=== PATIENT | female | born 1985 | race Caucasian/White ===

== ENCOUNTER → 2019-10-02 13:24 | Outpatient (CLI) | payer MEDICAID ==
[2014-03-09 12:46] VITALS: BMI 37.8
[~2019-10-02 13:24] MED LIST: DIABETA5 MG PO; IBUPROFEN600 MG PO; PERCOCET 5-3251 TAB PO; PRENATAL COMPLE1 TAB PO; SYNTHROID125 MCG PO
== END | disposition home or self-care (01) ==
LOC: D.US 12:45
PROVIDERS: ATTEND Obstetrics & Gynecology Gynecology
DX: O09.90 Supervision of high risk pregnancy, unspecified, unspecified trimester (principal); Z3A.00 Weeks of gestation of pregnancy not specified

== ENCOUNTER 2019-10-27 05:26 | Inpatient (IN) | payer BC ==
[~2019-10-27] VITALS: Ht 167.6 cm; Wt 106.6 kg
[2019-10-27] MEDS ORDERED: TYLENOL W/CODEI1 TAB PO (06:19)
[2019-10-27] MEDS ORDERED: NORMODYNE / TR100 MG PO (06:20)
[2019-10-27] MEDS ORDERED: GLYBURIDE5 M1 PO (06:20)
[2019-10-27 06:21] VITALS: BP 117/65; BMI 38.0
--- NOTE | 2019-10-28 01:01 | NUR ---
RN TO PT BEDSIDE FOR ROUNDING. PT SLEEPING AT THIS TIME. NO NEEDS AT THIS TIME. BED IN LOWEST POSITION, CALL LIGHT WITHIN REACH, SIDE RAILS UPX2.
--- NOTE | 2019-10-28 07:13 | NUR ---
PER REPORT THIS AM, FBG IS 81, PT SELF-ADMINISTERS INSULIN PER MD ORDERS, REVIEWED TECHNIQUE FOR DRAWING INSULIN AND NEED FOR GLUCOSE CHECKS AND KEEPING A DAILY LOG. PT STATES UNDERSTANDING, AM ASSESSMENT COMPLETED, NAD NOTED. WILL MONITOR.
[2019-10-28 07:18] VITALS: BP 128/77
--- NOTE | 2019-10-28 08:30 | NUR ---
ROUNDS COMPLETED, NAD NOTED. WILL MONITOR.
--- NOTE | 2019-10-28 09:32 | NUR ---
ROUNDS COMPLETED, NAD NOTED WILL MONITOR. DISCUSSED PLAN OF CARE FOR TODAY INCLUDING DISCHARGE HOME. PT STATES UNDERSTANDING.
[2019-10-28 09:33] VITALS: Ht 167.6 cm; Wt 106.6 kg
[2019-10-28] MEDS ORDERED: HUMULIN R100 UNIT/1 SQ (09:54)
[2019-10-28] MEDS ORDERED: HUMULIN N100 U/ML SC ×3 (09:56→09:59)
--- NOTE | 2019-10-28 10:37 | NUR ---
discharge instructions reviewed with pt, handouts provided for review at home, questions answered, original rx given to pt, saline lock discontinued, catheter tip intact, pressure dressing applied and secured with clear tape. pt states "i have to go my is waiting on me". verbalizes understanding of all instructions given today. ambulatory from unit with personal belongings discharged in stable condition.
== END 2019-10-28 10:37 | disposition home or self-care (01) | DRG 833 ==
LOC: D.LDO 05:26 → D.LD 05:58
PROVIDERS: ADMIT Obstetrics & Gynecology; ATTEND Obstetrics & Gynecology
DX: O24.419 Gestational diabetes mellitus in pregnancy, unspecified control (principal); Z3A.24 24 weeks gestation of pregnancy; O13.4 Gestational [pregnancy-induced] hypertension without significant proteinuria, complicating childbirth; O99.282 Endocrine, nutritional and metabolic diseases complicating pregnancy, second trimester

== ENCOUNTER 2019-12-07 05:16 | Outpatient (CLI) | payer MEDICAID ==
[2019-10-28 09:33] VITALS: BMI 38.0
[~2019-12-07 05:16] MED LIST changes: +GLYBURIDE5 M1 PO; +HUMULIN N100 U/ML SC; +HUMULIN R100 UNIT/1 SQ; +NORMODYNE / TR100 MG PO; +TYLENOL W/CODEI1 TAB PO
== END 2019-12-07 06:30 | disposition home or self-care (01) ==
LOC: D.LDO 05:16
PROVIDERS: ATTEND Obstetrics & Gynecology
DX: O24.913 Unspecified diabetes mellitus in pregnancy, third trimester (principal); Z3A.29 29 weeks gestation of pregnancy

== ENCOUNTER → 2019-12-11 09:03 | Outpatient (CLI) | payer MEDICAID ==
[2019-10-28 09:33] VITALS: BMI 38.0
== END | disposition home or self-care (01) ==
LOC: D.LDO 09:03
PROVIDERS: ATTEND Obstetrics & Gynecology
DX: O24.913 Unspecified diabetes mellitus in pregnancy, third trimester (principal); Z3A.30 30 weeks gestation of pregnancy

== ENCOUNTER 2019-12-14 04:56 | Outpatient (CLI) | payer MEDICAID ==
[2019-10-28 09:33] VITALS: BMI 38.0
== END 2019-12-14 05:35 | disposition home or self-care (01) ==
LOC: D.LDO 04:56
PROVIDERS: ATTEND Obstetrics & Gynecology
DX: O24.913 Unspecified diabetes mellitus in pregnancy, third trimester (principal); Z3A.30 30 weeks gestation of pregnancy

== ENCOUNTER → 2019-12-18 19:40 | Outpatient (CLI) | payer MEDICAID ==
[2019-10-28 09:33] VITALS: BMI 38.0
== END | disposition home or self-care (01) ==
LOC: D.LDO 19:40
PROVIDERS: ATTEND Student in an Organized Health Care Education/Training Program
DX: O24.419 Gestational diabetes mellitus in pregnancy, unspecified control (principal); Z3A.31 31 weeks gestation of pregnancy

== ENCOUNTER 2019-12-21 05:51 | Outpatient (CLI) | payer MEDICAID ==
[2019-10-28 09:33] VITALS: BMI 38.0
== END 2019-12-21 07:05 | disposition home or self-care (01) ==
LOC: D.LDO 05:51
PROVIDERS: ATTEND Obstetrics & Gynecology
DX: O24.419 Gestational diabetes mellitus in pregnancy, unspecified control (principal); Z3A.31 31 weeks gestation of pregnancy

== ENCOUNTER 2019-12-25 20:08 | Outpatient (CLI) | payer MEDICAID ==
[2019-10-28 09:33] VITALS: BMI 38.0
== END 2019-12-25 21:08 | disposition home or self-care (01) ==
LOC: D.LDO 20:08
PROVIDERS: ATTEND Obstetrics & Gynecology
DX: O24.913 Unspecified diabetes mellitus in pregnancy, third trimester (principal); Z3A.32 32 weeks gestation of pregnancy

== ENCOUNTER 2019-12-29 06:17 | Outpatient (CLI) | payer MEDICAID ==
[2019-10-28 09:33] VITALS: BMI 38.0
== END 2019-12-29 08:30 | disposition home or self-care (01) ==
LOC: D.LDO 06:17
PROVIDERS: ATTEND Obstetrics & Gynecology
DX: O24.419 Gestational diabetes mellitus in pregnancy, unspecified control (principal); Z3A.32 32 weeks gestation of pregnancy; O16.3 Unspecified maternal hypertension, third trimester

== ENCOUNTER 2020-01-01 16:26 | Outpatient (CLI) | payer MEDICAID ==
[2019-10-28 09:33] VITALS: BMI 38.0
== END 2020-01-01 17:01 | disposition home or self-care (01) ==
LOC: D.LDO 16:26
PROVIDERS: ATTEND Obstetrics & Gynecology
DX: O24.913 Unspecified diabetes mellitus in pregnancy, third trimester (principal); Z3A.33 33 weeks gestation of pregnancy

== ENCOUNTER 2020-01-04 06:08 | Outpatient (CLI) | payer MEDICAID ==
[2019-10-28 09:33] VITALS: BMI 38.0
== END 2020-01-04 06:30 ==
LOC: D.LDO 06:08
PROVIDERS: ATTEND Obstetrics & Gynecology
DX: O24.913 Unspecified diabetes mellitus in pregnancy, third trimester (principal); Z3A.33 33 weeks gestation of pregnancy

== ENCOUNTER 2020-01-08 17:15 | Outpatient (CLI) | payer MEDICAID ==
[2019-10-28 09:33] VITALS: BMI 38.0
== END 2020-01-08 19:45 | disposition home or self-care (01) ==
LOC: D.LDO 17:15
PROVIDERS: ATTEND Obstetrics & Gynecology
DX: O24.913 Unspecified diabetes mellitus in pregnancy, third trimester (principal); Z3A.34 34 weeks gestation of pregnancy

== ENCOUNTER 2020-01-11 09:40 | Outpatient (CLI) | payer MEDICAID ==
[2019-10-28 09:33] VITALS: BMI 38.0
== END 2020-01-11 09:57 | disposition home or self-care (01) ==
LOC: D.LDO 09:40
PROVIDERS: ATTEND Obstetrics & Gynecology
DX: O24.913 Unspecified diabetes mellitus in pregnancy, third trimester (principal); O10.913 Unspecified pre-existing hypertension complicating pregnancy, third trimester; Z3A.34 34 weeks gestation of pregnancy

== ENCOUNTER 2020-01-15 19:40 | Outpatient (CLI) | payer MEDICAID ==
[2019-10-28 09:33] VITALS: BMI 38.0
== END 2020-01-15 21:27 | disposition home or self-care (01) ==
LOC: D.LDO 19:40
PROVIDERS: ATTEND Pediatrics
DX: O24.913 Unspecified diabetes mellitus in pregnancy, third trimester (principal); Z3A.35 35 weeks gestation of pregnancy

== ENCOUNTER → 2020-01-18 05:24 | Outpatient (CLI) | payer MEDICAID ==
[2019-10-28 09:33] VITALS: BMI 38.0
== END | disposition home or self-care (01) ==
LOC: D.LDO 05:24
PROVIDERS: ATTEND Obstetrics & Gynecology
DX: O24.913 Unspecified diabetes mellitus in pregnancy, third trimester (principal); O16.3 Unspecified maternal hypertension, third trimester; Z3A.35 35 weeks gestation of pregnancy

== ENCOUNTER 2020-01-22 06:55 | Outpatient (CLI) | payer MEDICAID ==
[2019-10-28 09:33] VITALS: BMI 38.0
== END 2020-01-22 07:45 | disposition home or self-care (01) ==
LOC: D.LDO 06:55
PROVIDERS: ATTEND Obstetrics & Gynecology
DX: O24.419 Gestational diabetes mellitus in pregnancy, unspecified control (principal); Z3A.36 36 weeks gestation of pregnancy

== ENCOUNTER 2020-01-25 07:25 | Outpatient (CLI) | payer MEDICAID ==
[2019-10-28 09:33] VITALS: BMI 38.0
== END 2020-01-25 08:49 | disposition home or self-care (01) ==
LOC: D.LDO 07:25
PROVIDERS: ATTEND Obstetrics & Gynecology
DX: O24.419 Gestational diabetes mellitus in pregnancy, unspecified control (principal); Z3A.36 36 weeks gestation of pregnancy

== ENCOUNTER 2020-01-29 15:49 | Outpatient (CLI) | payer MEDICAID ==
[2019-10-28 09:33] VITALS: BMI 38.0
== END 2020-01-29 17:14 | disposition home or self-care (01) ==
LOC: D.LDO 15:49
PROVIDERS: ATTEND Obstetrics & Gynecology
DX: O24.913 Unspecified diabetes mellitus in pregnancy, third trimester (principal); O16.3 Unspecified maternal hypertension, third trimester; Z3A.37 37 weeks gestation of pregnancy

== ENCOUNTER 2020-01-30 05:26 | Inpatient (IN) | payer MEDICAID ==
[~2020-01-30] VITALS: Ht 167.6 cm; Wt 117.9 kg
[2020-01-30 05:43] VITALS: BP 149/84; Ht 167.6 cm; Wt 117.9 kg
[2020-01-30 06:43] LABS: HEMATOCRIT 31.3 % (36.0-48.0); HEMOGLOBIN 10.5 g/dL (12-16); MCH 29.7 pg (26.0-34.0); MCHC 33.5 g/dL (31.0-37.0); MCV 88.7 fL (80.0-100.0); MEAN PLATELET VOLUME 11.4 fL (7.4-10.4); RBC 3.53 10x6/uL (4.00-5.40); RDW 15.1 % (11.5-14.5); WBC 9.2 10x3/uL (4.8-10.8)
[2020-01-30 06:59] LABS: UDS - AMPHET NEGATIVE QUAL (NEGATIVE); UDS - BARB NEGATIVE QUAL (NEGATIVE); UDS - BENZO NEGATIVE QUAL (NEGATIVE); UDS - COCAINE NEGATIVE QUAL (NEGATIVE); UDS - OPIATE NEGATIVE QUAL (NEGATIVE); UDS - PCP NEGATIVE QUAL (NEGATIVE); UDS - THC NEGATIVE QUAL (NEGATIVE)
[2020-01-30 08:31] LABS: CALC OSMOLALITY 272 mosm/kg (275-300); CALCIUM 9.3 mg/dL (8.5-10.1); CARBON DIOXIDE 21.7 mmol/L (21.0-32.0); CHLORIDE - SERUM 105 mmol/L (98-107); CREATININE - SERUM 0.7 mg/dL (0.6-1.3); POTASSIUM - SERUM 3.9 mmol/L (3.5-5.1); SODIUM 138 mmol/L (136-145); UREA NITROGEN 9 mg/dL (7-18); eGFR NON AFRICAN AMERICAN > 90 mL/min (90-120)
[2020-01-30 08:33] LABS: GLUCOSE 69 mg/dL (74-106)
[2020-01-30 08:37] LABS: ALBUMIN 2.4 g/dL (3.4-5.0); ALKALINE PHOSPHATASE 66 U/L (30-120); ALT (SGPT) 13 U/L (10-68); BILIRUBIN - DIRECT 0.05 mg/dL (0.00-0.30); BILIRUBIN - INDIRECT 0.09 mg/dL (0.00-1.00); BILIRUBIN - TOTAL 0.14 mg/dL (0.2-1.3)
--- NOTE | 2020-01-31 04:50 | NUR ---
RN TO PT BEDSIDE FOR ROUNDING, PT SLEEPING AT THIS TIME.
[2020-01-31 06:10] LABS: RAPID PLASMA REAGIN Non Reactive (Non Reactive)
[2020-01-31 09:10] LABS: BASOPHILS 0.1 % (0-2); EOSINOPHILS 0.9 % (0-7); HEMOGLOBIN 9.4 g/dL (12-16); IMMATURE GRANULOCYTES 0.4 % (0-5); LYMPHOCYTES 28.6 % (15-50); MCH 29.1 pg (26.0-34.0); MCHC 32.4 g/dL (31.0-37.0); MCV 89.8 fL (80.0-100.0); MEAN PLATELET VOLUME 10.4 fL (7.4-10.4); MONOCYTES 8.5 % (2-11); NEUTROPHILS 61.5 % (40-80); PLATELET COUNT 136 10x3/uL (130-400); RBC 3.23 10x6/uL (4.00-5.40); RDW 14.9 % (11.5-14.5); WBC 7.9 10x3/uL (4.8-10.8)
--- NOTE | 2020-01-31 12:40 | NUR ---
RECEIVED PT TO LABOR AND DELIVERY POST SECTION BY DR. KANG BY BED, WITH REPORT FROM NIDIA [employer] TECHNICIAN NURSE. PT HAS LOW TRANSVERSE INCISION, C/D/I. ABDOMEN PALPATES SOFT, FUNDUS FIRM, U/1, SMALL RUBRA LOCHIA, NO CLOTS. PT HAS CRAFT CATH IN PLACE DRAINING DARK YELLOW URINE, 100 CC'S NOTED. SCD'S IN PLACE. PT HAS 18 G TO RIGHT HAND WITH EXISTING BAG OF PITOCIN INFUSING AT 125 ML/HR. ICE PACK PLACED TO INCISION OVER GOWN. PT DENIES NAUSEA, SOB, OR DIFFICULTY BREATHING. PT SERVED LARGE ICE WATER. DENIES ALL OTHER NEEDS. SRUP X2, CALL LIGHT AND PHONE WITHIN REACH.
[2020-01-31 12:45] VITALS: BP 175/94
--- NOTE | 2020-01-31 13:30 | NUR ---
MANAGER REGISTRATION STARTED WITH 0.4MG LOADING DOSE GIVEN FOR PAIN THAT SHE RATES AT 8/10. TORDAL 30MG SIVP ALSO GIVEN AT THIS TIME. PT DOES DEMONSTRATE UNDERSTANDING OF MANAGER REGISTRATION BUTTON. FUNDUS FIRM AT U/1 WITH LIGHT BLEEDING AND NO CLOTS WITH MASSAGE. ICE PACK REAPPLIED TO INCISION. SIDE RAILS UP X 2 WITH PHONE AND CALL LIGHT IN REACH.
--- NOTE | 2020-01-31 15:00 | NUR ---
fundus firm at u/2 with no clots with massage and light bleeding noted. asif care per rn, underpads/chux and towels changed, she is able to lift her bottom up off the bed. tilted to her left side with pillow to her back for support. she rates pain at 3/10 at this time. side rails up x 2, call light and phone in her reach and sig other at bedside.
[2020-01-31 15:12] LABS: BASOPHILS 0.1 % (0-2); EOSINOPHILS 0.2 % (0-7); HEMATOCRIT 28.1 % (36.0-48.0); HEMOGLOBIN 9.2 g/dL (12-16); IMMATURE GRANULOCYTES 0.4 % (0-5); LYMPHOCYTES 14.7 % (15-50); MCH 29.4 pg (26.0-34.0); MCHC 32.7 g/dL (31.0-37.0); MCV 89.8 fL (80.0-100.0); MEAN PLATELET VOLUME 10.3 fL (7.4-10.4); MONOCYTES 5.7 % (2-11); NEUTROPHILS 78.9 % (40-80); PLATELET COUNT 140 10x3/uL (130-400); RBC 3.13 10x6/uL (4.00-5.40)
[2020-01-31 15:14] LABS: WBC 11.3 10x3/uL (4.8-10.8)
[2020-01-31 16:10] LABS: ANION GAP 11.5 mmol/L (8-16); CALCIUM 9.5 mg/dL (8.5-10.1); POTASSIUM - SERUM 4.3 mmol/L (3.5-5.1)
[2020-01-31 16:15] LABS: URIC ACID 5.9 mg/dL (2.6-7.2)
[2020-01-31 16:17] LABS: CARBON DIOXIDE 32.8 mmol/L (21.0-32.0); CREATININE - SERUM 1.2 mg/dL (0.6-1.3)
[2020-01-31 16:30] VITALS: BP 151/78
--- NOTE | 2020-01-31 19:38 | NUR ---
RN TO PT BEDSIDE FOR ROUNDING, PT ADMINISTERED LABETALOL 100MG PO PER MD ORDERS. VSS. PT STATES PAIN IS 2/10 TO ABDOMEN, URINE DRAINING TO UROMETER. SCD'S ON. PT PERFORMED INCENTIVE SPIROMETRY AT THIS TIME. BED IN LOWEST POSITION, CALL LIGHT IN REACH, SIDE RAILS UPX2.
[2020-01-31 20:14] VITALS: BP 138/92
--- NOTE | 2020-01-31 20:14 | NUR ---
RN TO PT BEDSIDE FOR ROUNDING AT THIS TIME. PT DENIES ANY NEEDS, VSS.
[2020-01-31 20:56] LABS: HEMATOCRIT 25.8 % (36.0-48.0); HEMOGLOBIN 8.5 g/dL (12-16); MCH 29.5 pg (26.0-34.0); MCHC 32.9 g/dL (31.0-37.0); MCV 89.6 fL (80.0-100.0); MEAN PLATELET VOLUME 9.6 fL (7.4-10.4); RBC 2.88 10x6/uL (4.00-5.40); RDW 14.8 % (11.5-14.5); WBC 9.4 10x3/uL (4.8-10.8)
--- NOTE | 2020-01-31 21:07 | NUR ---
RN TO PT BEDSIDE FOR ROUNDING, VSS.
--- NOTE | 2020-01-31 22:03 | NUR ---
RN TO PT BEDSIDE FOR ROUNDING. VSS. PT DENIES ANY NEEDS AT THIS TIME.
[2020-01-31 23:16] VITALS: BP 121/59
--- NOTE | 2020-02-01 00:03 | NUR ---
RN TO PT BEDSIDE FOR ROUNDING, VSS. FUNDUS FIRM, MIDLINE, 2 BELOW, SCANT RUBRA LOCHIA NOTED, NO CLOTS SEEN, PT STATES PAIN IS 2-3/10, PT DENIES ANY NEEDS AT THIS TIME. NEUROLOGICAL CHECKS NORMAL. BED IN LOWEST POSITION, CALL LIGHT IN REACH, SCD'S ON, SIDE RAILS UPX2.
[2020-02-01 03:15] VITALS: BP 118/65
--- NOTE | 2020-02-01 03:19 | NUR ---
RN TO PT BEDSIDE, VSS. PT STATES PAIN IS 6/10 TO ABDOMINAL AREA. PT PRESSED COMPUTER ENGINEERING PROFESSOR BUTTON AT THIS TIME. PT DENIES ANY OTHER NEEDS AT THIS TIME. BED IN LOWEST POSITION, CALL LIGHT IN REACH.
[2020-02-01 04:24] LABS: BASOPHILS 0.1 % (0-2); EOSINOPHILS 0.5 % (0-7); HEMATOCRIT 25.4 % (36.0-48.0); HEMOGLOBIN 8.2 g/dL (12-16); IMMATURE GRANULOCYTES 0.4 % (0-5); LYMPHOCYTES 28.1 % (15-50); MCH 28.9 pg (26.0-34.0); MCHC 32.3 g/dL (31.0-37.0); MCV 89.4 fL (80.0-100.0); MONOCYTES 6.9 % (2-11); PLATELET COUNT 142 10x3/uL (130-400); RBC 2.84 10x6/uL (4.00-5.40); WBC 7.6 10x3/uL (4.8-10.8)
--- NOTE | 2020-02-01 05:14 | NUR ---
RN TO PT BEDSIDE FOR ROUNDING. VSS. PT STATES PAIN IS 3/10 TO ABDOMEN. PT DENIES ANY NEEDS AT THIS TIME. BED IN LOWEST POSITION, CALL LIGHT IN REACH, SIDE RAILS UPX2.
[2020-02-01 07:15] VITALS: BP 132/69
--- NOTE | 2020-02-01 07:15 | NUR ---
am assessment completed. see flowsheet. see i/o. fresh ice pack placed over gown to incision. large mug of ice water served. will transfer pt to women's services, shalom rae rn to assume care of pt. see mag flowsheet. pt denies all other needs at this time. cool wet washcloth provided for pt's face/forehead. srup x2, call light and phone within reach.
--- NOTE | 2020-02-01 09:15 | NUR ---
dr. lane to pt's room to round on pt. verbal order received to stop magnesium sulfate, d/c montemayor and iv. advance diet to regular, and change pain medication to po norco and ibuprofen. to room, magnesium sulfate and all ivf's stopped at this time.
[2020-02-01 09:23] LABS: HEMATOCRIT 24.1 % (36.0-48.0); HEMOGLOBIN 7.8 g/dL (12-16); MCH 29.1 pg (26.0-34.0); MCHC 32.4 g/dL (31.0-37.0); MCV 89.9 fL (80.0-100.0); MEAN PLATELET VOLUME 10.5 fL (7.4-10.4); RBC 2.68 10x6/uL (4.00-5.40); WBC 6.9 10x3/uL (4.8-10.8)
--- NOTE | 2020-02-01 09:45 | NUR ---
dietary serves regular breakfast tray.
[2020-02-01 10:16] VITALS: BP 121/68
--- NOTE | 2020-02-01 11:00 | NUR ---
montemayor cath dc'd with 400 ml's light yellow urine emptied. pt wishes to get up to the shower, clean linens provided. iv dc'd with cath intact. pt in shower. peripads/panties provided. pt removes dressing over incision when finished with shower. héctor intact, incision remains c/d/i. pt dressed in own clothing. srup x2, call light and phone within reach. pt denies all other needs at this time.
[2020-02-01 14:45] VITALS: BP 105/58
--- NOTE | 2020-02-01 14:45 | NUR ---
dr. lane calls to unit to request bs be taken before pt is discharged home. jorge Chavez md notified. dr. lane gives telephone order to go ahead and discharge pt with pt taking 20 units nph and 20 units regular in am, and 15 units nph and 15 units regular at dinner time, with no lunch dose. pt informed and pt agrees. pt to start this dosage at dinner tonight. see emar for all meds adm by this rn. discharge instructions explained to pt, copies provided, along with prescriptions for norco and ibuprofen. pt denies all questions.
--- NOTE | 2020-02-01 15:15 | NUR ---
PT TAKEN TO PRIVATE VEHICLE BY WHEELCHAIR, IN STABLE CONDITION WITH HER MOTHER DRIVING. PT DISCHARGED HOME.
[2020-02-01] MEDS ORDERED: HYDROCODON-ACE1 EA10 PO (15:42)
[2020-02-01] MEDS ORDERED: IBUPROFEN600 MG PO (15:42)
[2020-02-01] MEDS ORDERED: HUMULIN R100 UNIT/1 SC ×3 (15:46→16:00)
[2020-02-01] MEDS ORDERED: HUMULIN N100 U/ML SC (16:01)
--- NOTE | 2020-02-05 07:07 | OP ---
PATIENT NAME: ZOILA CARLIN MEDICAL RECORD: [id number] :85 LOCATION:[id number] ADMISSION DATE:01/30/20 SURGEON: OSMIN SANON MD DATE OF OPERATION: 01/31/2020 PREOPERATIVE DIAGNOSES: 1. Term intrauterine at 37 weeks. 2. Chronic hypertension. 3. A2 gestational diabetes. POSTOPERATIVE DIAGNOSES: 1. Term intrauterine at 37 weeks. 2. Chronic hypertension. 3. A2 gestational diabetes. 4. Arrest of descent. PROCEDURE: Primary low transverse section. SURGEON: Osmin Sanon MD ESTIMATED BLOOD LOSS: 1000 cc. INTRAVENOUS FLUIDS: Per anesthesia record. ANESTHESIA: Regional via spinal. COMPLICATIONS: None apparent. SPECIMENS: Placenta and cord for gases. FINDINGS: 1. Viable infant, Apgars 9 at 1 and 9 at 5. 2. Placenta delivered manually intact, 3-vessel cord noted. 3. Normal adnexa bilaterally. PROCEDURE IN DETAIL: The patient was taken to the operating room where regional anesthesia was achieved without any difficulty. The patient was then prepped and draped in normal sterile fashion in dorsal supine position. SCDs were on and functioning normally and a Luis catheter was placed and draining freely. Following prep and drape, a Pfannenstiel skin incision was made, extended down to the underlying subcutaneous fat to level of fascia. The fascia was then excised in the midline and extended bilaterally using the Delgado scissors. Superior and inferior aspect of the fascial incision were grasped with Kandi clamps times 2, tented upward, and sharply dissected from the underlying rectus muscle using the Delgado scissors and the Bovie cautery. The rectus muscles were then bluntly in the midline and the peritoneum was entered sharply at the superior aspect of the incision using the Metzenbaum scissors. Peritoneal dissection was performed laterally using the Metzenbaum scissors. A bladder blade was placed into the pelvis and a bladder flap was created by excising the anterior leaf of broad ligament across the lower uterine segment. This was further developed digitally and the bladder blade was replaced over the bladder flap. A low transverse incision was made with a scalpel and extended using the Pelosi method. The vertex was found to be unengaged and extended. The vacuum was placed on the occiput and the vertex was delivered atraumatically after flexion from the vacuum. The body was delivered OPERATIVE REPORT [id number] HARP,ZOILA GRAYN atraumatically. The cord was clamped times 2, cut, and the infant was bulb suctioned and handed to the awaiting pediatric team. Cord was obtained for gases. The placenta was removed manually and intact. A 3-vessel cord was noted. Uterus was exteriorized and removed of all clots and debris and vigorously massaged until good uterine tone was noted. Uterine incision was repaired with 0 Vicryl in a running locked fashion times 2 with good hemostasis noted. Posterior cul-de-sac was then thoroughly irrigated and uterus was replaced into the pelvis. Anterior cul-de-sac was then thoroughly irrigated and good hemostasis was noted. Counts were correct times 2 for sponges, needles, and instruments. The fascia was repaired with 0 loop PDS times 1 and skin repaired with héctor. The patient tolerated the procedure well, transported to postanesthesia recovery stable without incident. TRANSINT:[id number] Voice Confirmation ID: [id number] DOCUMENT ID: [id number] OSMIN SANON MD at 0707 CC: [id number] DICTATION DATE: 02/01/20 1402 PROTOTYPE MACHINE OPERATOR: 02/01/20 1757 DIS IN 02/01/20 [facility] [address] [place] [address]
== END 2020-02-01 15:15 | disposition home or self-care (01) | DRG 788 ==
LOC: D.LD 05:26
PROVIDERS: ADMIT Obstetrics & Gynecology; ATTEND Obstetrics & Gynecology
PROC: 10D00Z1 Extraction of Products of Conception, Low, Open Approach (ICD-10-PCS; principal; 2020-01-31 09:00)
DX: O10.92 Unspecified pre-existing hypertension complicating childbirth (principal); Z37.0 Single live birth; O24.420 Gestational diabetes mellitus in childbirth, diet controlled; O62.1 Secondary uterine inertia; Z3A.37 37 weeks gestation of pregnancy

== ENCOUNTER 2020-03-29 07:40 | Day surgery (SDC) | payer MEDICAID ==
[2020-03-27 16:24] LABS: BASOPHILS 0.1 % (0-2); EOSINOPHILS 1.1 % (0-7); HEMATOCRIT 33.9 % (36.0-48.0); HEMOGLOBIN 11.3 g/dL (12-16); IMMATURE GRANULOCYTES 0.4 % (0-5); LYMPHOCYTES 34.5 % (15-50); MCH 28.3 pg (26.0-34.0); MCHC 33.3 g/dL (31.0-37.0); MEAN PLATELET VOLUME 9.6 fL (7.4-10.4); MONOCYTES 6.6 % (2-11); NEUTROPHILS 57.3 % (40-80); RBC 3.99 10x6/uL (4.00-5.40); WBC 7.4 10x3/uL (4.8-10.8)
[2020-03-27 16:36] LABS: PLATELET COUNT 204 10x3/uL (130-400)
[2020-03-27 16:50] LABS: CALC OSMOLALITY 275 mosm/kg (275-300); CALCIUM 8.7 mg/dL (8.5-10.1); CARBON DIOXIDE 27.1 mmol/L (21.0-32.0); CHLORIDE - SERUM 104 mmol/L (98-107); CREATININE - SERUM 0.8 mg/dL (0.6-1.3); GLUCOSE 125 mg/dL (74-106); POTASSIUM - SERUM 3.8 mmol/L (3.5-5.1); SODIUM 137 mmol/L (136-145); UREA NITROGEN 15 mg/dL (7-18); eGFR NON AFRICAN AMERICAN 87 mL/min (90-120)
[~2020-03-29] VITALS: Ht 167.6 cm; Wt 102.3 kg
[~2020-03-29 07:40] MED LIST changes: +COZAAR50 MG PO; +GLUCOPHAGE500 MG PO; +HUMULIN R100 UNIT/1 SC; +HYDROCODON-ACE1 EA10 PO
[2020-03-29 08:08] VITALS: BP 129/75; Ht 167.6 cm; Wt 102.3 kg
[2020-03-29 08:10] LABS: HCG URINE NEGATIVE (NEGATIVE)
--- NOTE | 2020-03-29 13:29 | NUR ---
PT STATES PAIN IS A "5" BUT DESIRES NO FURTHER PAIN INTERVENTION
--- NOTE | 2020-03-29 14:15 | NUR ---
DC INSTRUCTIONS GIVEN TO PT. STATES UNDERSTANDING. PT VOIDED. DC'D IV CATH FULLY INTACT.
--- NOTE | 2020-03-29 14:32 | NUR ---
PT LEFT UNIT VIA WC AT 1430
--- NOTE | 2020-03-31 14:01 | OP ---
PATIENT NAME: ZOILA CARLIN MEDICAL RECORD: [id number] :85 [facility] AD[facility]ION DATE: SURGEON: MEMO KANG MD DATE OF OPERATION: 03/29/2020 PREOPERATIVE DIAGNOSES: 1. Multiparity. 2. The patient desires permanent sterility. POSTOPERATIVE DIAGNOSES: 1. Multiparity. 2. The patient desires permanent sterility. 3. Omental and uterine adhesions. PROCEDURE: Laparoscopic lysis of adhesions and bilateral tubal ligation via bipolar cautery and excision of vulvar lesion. COMPLICATIONS: None apparent. FINDINGS: 1. Extensive omental adhesions involving the anterior abdominal wall. 2. Adhesions involving the uterus and anterior abdominal wall. 3. Grossly normal appearing fallopian tubes, ovaries and uterus. COMPLICATIONS: None apparent. SPECIMENS: None. ESTIMATED BLOOD LOSS: Minimal. INTRAVENOUS FLUIDS: Per anesthesia record. PROCEDURE: The patient taken to the operating room where general anesthesia was achieved without difficulty. The patient was then prepped and draped in normal sterile fashion in the dorsal lithotomy position in the [facility]. The bladder was drained of approximately 100 cc of yellow urine and a sponge stick was placed into the vagina for uterine elevation. At this point, attention was turned to the umbilicus, where a 5-mm infraumbilical skin incision was made. The 5-mm bladeless trocar was then used to enter the intraperitoneal space under direct visualization of laparoscope. The patient was insufflated and opening pressure was found to be less than 10 mmHg. The patient was then fully insufflated under direct view of the laparoscope. Dense omental adhesions were noted in the midline from approximately 5-6 cm below the umbilicus all the way to the level of the bladder. At this point, a left lower quadrant port was placed by making a 5-mm skin incision of left lower quadrant, 2 cm medial and 2 cm superior to the anterior superior iliac spine. A 5-mm bladeless trocar was then used to enter the intraperitoneal space under direct visualization of the laparoscope. The Thunderbeat harmonic bipolar instrument was then used to cauterize and excise the omental attachments on the anterior abdominal wall with good hemostasis noted. Attention was then turned to the bilateral fallopian tubes. The [employer] bipolar cautery paddles were then used to completely fulgurate/coagulate the mid portion of the fallopian tube approximately 5 cm bilaterally. The patient was desufflated upon ending of the case. The trocars were then removed and the skin was repaired with 3-0 Vicryl in an interrupted fashion. Attention was then turned to several areas from 1 cm-2 mm of OPERATIVE REPORT [id number] TESFAYEZOILA AZAR seborrheic keratoses. These were elevated using a forceps and excised from the dermis using the bipolar cautery. The craters were then very gently cauterized for bleeding. The sponge stick was removed from the vagina. The patient tolerated the procedure well, transferred to postanesthesia recovery stable without incident. TRANSINT:[id number] Voice Confirmation ID: [id number] DOCUMENT ID: [id number] MEMO KANG MD at 1401 CC: [id number] DICTATION DATE: 03/29/20 1349 PRODUCT DEVELOPMENT MANAGER: 03/29/20 2333 [facility] 03/29/20 [id number] [place] [address]
== END 2020-03-29 14:30 | disposition home or self-care (01) ==
LOC: D.OPS 07:40 → D.PAN 08:30 → D.OPS 09:15
PROVIDERS: Anesthesiology; ATTEND Obstetrics & Gynecology
DX: Z64.1 Problems related to multiparity (principal); Z39.2 Encounter for routine postpartum follow-up; Z30.2 Encounter for sterilization; N73.6 Female pelvic peritoneal adhesions (postinfective); Z11.59 Encounter for screening for other viral diseases; E11.9 Type 2 diabetes mellitus without complications; I10 Essential (primary) hypertension; Z79.84 Long term (current) use of oral hypoglycemic drugs; E03.9 Hypothyroidism, unspecified